=== PATIENT | female | born 1985 | race Caucasian/White ===

== ENCOUNTER 2022-03-20 12:21 | Inpatient (IN) | payer SELFPAY, OTHER ==
[2022-03-20] VITALS (16 sets, daily range): BP systolic 121–140; BP diastolic 75–89; PULSE 70–100; RESP 15–22; TEMP 36.3–36.8; O2SAT 91–98; BMI 27.8
[2022-03-20] MEDS: Lactated Ringers 1,000 ML 999 ML IV (12:30)
[2022-03-20 12:44] LABS: Absolute Lymphocyte Count 1.61 X10^3/uL (0.83-4.51); Absolute Neutrophil Count 8.8 X10^3/uL (2.0-7.7); Basophil# 0.04 X10^3/uL; Basophil% 0.4 % (0-1); Eosinophil# 0.03 X10^3/uL; Eosinophils% 0.3 % (0-5); Hematocrit 44.4 % (37-47); Hemoglobin 14.8 g/dL (12.0-15.0); Lymphocyte # 1.61 X10^3/ul (0.83-4.51); Lymphocyte % 14.6 % (19-41); Mean Corp Hgb Conc 33.3 g/dL (32-36); Mean Corpuscular Hgb 30.3 pg (27.0-32.0); Mean Corpuscular Volume 90.8 fL (81-99); Mean Platelet Vol. 9.9 fl (6.2-12.0); Monocyte# 0.57 X10^3/uL; Monocyte% 5.2 % (0-10); NRBC Flagged by Analyzer 0 % (0-5); Neutrophil # 8.76 X10^3/uL (2.7-7.7); Platelet Count 208 K/mm3 (150-450); RBC Distribution Width CV 12.7 % (11.6-14.6); RBC Distribution Width SD 42.3 fl (35.1-43.9); Red Blood Count 4.89 M/mm3 (4.2-5.4); White Blood Count 11.1 K/mm3 (4.4-11.0)
--- NOTE | 2022-03-20 12:50 | MASS_PTH ---
PATIENT: EBONY CERNA LOC: WP U#:[id number] AGE/SX: 36/F ROOM: [facility] RE03/20/[address]: Dr. 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 See comment. AM:pema 03/22/2022 COMMENT The patient?s history of recent section is noted. MICROSCOPIC DESCRIPTION Slides are reviewed. GROSS DESCRIPTION Received in fixative is one container labeled with the patient's name and designated uterine mass. The specimen consists of a pink, congested nodular mass measuring 2.5 x 2.0 x 2.0 cm. The specimen is inked, serially sectioned and reveals congested cut surfaces. The entire specimen is submitted in three cassettes. / SJ:pema 03/21/2022 TC:5 CPT: 33049
[2022-03-20 13:26] LABS: Bacteria 0 SEEN /hpf (None Seen); Mucous, Urine 0 SEEN /hpf (<or=2+); White Blood Cells 0 SEEN /hpf (0-5)
[2022-03-20 13:31] LABS: ALB/GLOB Ratio 0.8 RATIO (0.9-2.4); AST(SGOT) 12 U/L (15-37); Alanine Aminotransfer ALT/SGPT 20 U/L (13-56); Alkaline Phosphatase 71 U/L (45-117); Anion Gap 6 (5-15); BUN 13 mg/dL (7-18); BUN/Creat Ratio 18.7 RATIO (10-20); Calcium,Total 9.1 mg/dL (8.5-10.1); Chloride 107 mmol/L (98-107); EST Glomerular Filtration Rate 102 mL/min (>60); Est Glom Filt Rate - Afr Amer 124 mL/min (>60); Estimated Creatinine Clearance 114.23 ml/min; Globulin 3.8 g/dL (2.2-4.2); Glucose 95 mg/dL (74-106); Potassium 3.5 mmol/L (3.5-5.1); Protein, Total 6.8 g/dL (6.4-8.2); Sodium Level 140 mmol/L (136-145)
[2022-03-20 13:34] LABS: Color, Urine Yellow (Yellow); Glucose, Dipstick Normal (Normal); Ketone-Dipstick Negative (Negative); Leukocyte Esterase-Dipstick Negative /ul (Negative); Nitrite-Dipstick Negative (Negative); Occult Blood-Urine 25 /ul (Negative); Protein-Dipstick Negative (Negative); Urine Bilirubin Dipstick Negative (Negative); Urine Clarity Sl. Cloudy (Clear); Urine Urobilinogen Normal (Normal); Urine pH 6.5 (5.0 - 8.0)
[2022-03-20 13:34] LABS: Partial Thromboplast Time 28.9 Seconds (24.1-36.2)
[2022-03-20] MEDS: Oxytocin 15 Units/NS 250ml 15 UNITS/250 ML IV.SOLN 83 UNITS IV (13:40)
[2022-03-20 13:43] LABS: Red Blood Cells-Urine 0-5 SEEN /hpf (0-5); Squamous Epithelial Cells - UA 0-5 SEEN /hpf (5-10)
[2022-03-20 13:45] LABS: Amphetamine Urine VISTA NEGATIVE (<1000 ng/mL); Barbiturate Urine VISTA NEGATIVE (< 200 ng/mL); Benzodiazepine Urine VISTA NEGATIVE (< 200 ng/mL); Cocaine Urine VISTA NEGATIVE (< 300 ng/mL); Ecstacy Urine VISTA NEGATIVE (< 500 ng/mL); Methadone Urine VISTA NEGATIVE (< 300 ng/mL); PCP Urine VISTA NEGATIVE (< 25 ng/mL); THC Urine VISTA NEGATIVE (< 50 ng/mL); Vista UDS pH Range 6
[2022-03-20] MEDS: Cefazolin 2 GM in 0.9% Normal Saline 100 ML IV (14:13)
--- NOTE | 2022-03-20 14:26 | PCM.HP.OB ---
HPI - General General Date of Admission: 03/20/22 HPI Narrative EBONY CERNA, is a 36 y/o who presents to labor and delivery along with a wrapper layer from the community due to contractions. The spray technician states that she heard audible decelerations and brought her in. They are unsure of the gestational age. She states that she has had 3 prior vaginal deliveries. During this they believe she probably had COVID during the . She is Rh Negative and her is positive but she only gets rhogam if the baby is positive in the past. PFSH PFSH no medical history Allergy/AdvReac Type Severity Reaction Status Date / Time No Known Allergies Allergy Verified 03/20/22 12:53 no significant family history no surgical history History 4 Elective abortions Hx Para 3 Spontaneous abortions Hx # Term Pregnancies Ectopic pregnancies Hx # Pregnancies Multiple births # of living children NST FHR Rate Baby A Baseline: 130 Variability:: Absent Accelerations:: None Decelerations:: Prolonged NST Reactive:: Non-Reactive FHR Category:: Category III Uterine Activity:: q 2 minutes ROS Constitutional Constitutional: Denies change in weight, fatigue, fever(s), headache(s), poor appetite or weakness Eyes Eyes: Denies blurry vision, change in vision, seeing flashes or spots in vision ENT HEENT: Denies dizziness, headache(s), loss taste/smell or sore throat Cardiovascular Cardiovascular: Denies chest pain, dizziness, dyspnea, irregular heart rhythm, leg edema, palpitations, rapid heart rate or vomiting Respiratory/Chest Respiratory/Chest: Denies chest tightness, cough, dyspnea or breast pain Gastrointestinal Gastrointestinal: Denies abdominal pain, anorexia, constipation, cramping, diarrhea, hemorrhoids, vomiting or weight changes Genitourinary Genitourinary: Denies dysuria, flank pain, genital lesions, genital pain, urinary frequency or urinary urgency Musculoskeletal Musculoskeletal: Denies back pain, difficulty walking, joint pain, limited range of motion, muscle cramps or numbness Integumentary Integumentary: Denies lesions or unusual bruising Neurologic Neurologic: Denies abnormal movements, abnormal speech, dizziness, numbness, seizure-like activity or syncope Psychiatric Psychiatric: Denies anxiety, behavioral changes, change in appetite, change in libido, cognitive impairment, confusion, depression, difficulty concentrating, hallucinations or suicidal thoughts Endocrine Endocrinology: Denies excessive sweating, polydipsia or polyuria Hematologic/Lymphatic Hematologic/Lymphatic: Denies easy bleeding, easy bruising or lymphadenopathy Allergic/Immunologic Allergic/Immunologic: Denies itchy eyes, lip swelling, seasonal rhinorrhea, rhinitis, throat swelling, tongue swelling, eczemia, wheezing or asthma Vital Signs Vital Signs Vital Signs: 03/20/22 12:17 03/20/22 12:19 03/20/22 12:19 Temperature 97.7 F L Pulse Rate 100 Blood Pressure 132/85 H BP Systolic 132 BP Diastolic 85 Pulse Ox 03/20/22 12:19 03/20/22 12:19 Temperature Pulse Rate 88 Blood Pressure BP Systolic BP Diastolic Pulse Ox 91 Weight Weight: 182 lb 15.739 oz Body Mass Index (BMI) 27.8 Physical Exam Const alert, oriented x3, no apparent distress and healthy appearing General Appearance: cooperative; Negative for anxious HEENT normocephalic Face and Sinus: normal facial exam Eyes EOMs intact bilaterally and no scleral icterus General Eye: normal appearance of both eyes Neck full ROM and supple Lymph Lymphatic: no lymphadenopathy noted Chest Chest: abnormal inspection of the chest Resp normal respiratory effort Effort and Inspection: able to speak in complete sentences Cardio regular rate GI soft to palpation and non-tender Inspection: gravid Palpation: soft; Negative for tender external exam normal Narrative: bedside ultrasound shows head circumference measuring 29 weeks 3 days, abdominal circumference measuring 29 weeks 3 days, and Femur length 30 weeks 0 days Speculum Exam - Cervix: other cx is 1/50/-3 Back/Spine no CVA tenderness Extremity normal to inspection, full ROM and no clubbing, cyanosis or edema General Extremity: Negative for calf tenderness or edema Skin Lesions: no lesions Rashes: no rashes Psych mental status grossly normal Labs Labs Labs: Blood Type A NEGATIVE Antibody Screen NEGATIVE Hct 44.4 % (37-47) Hgb 14.8 g/dL (12.0-15.0) Syphilis Total Ab Pending Rubella IgG Antibody Pending Hep Bs Antigen Pending HIV 1&2 Antibody Pending Group B Strep DNA Pending Assessment & Plan (1) distress: (2) No care in current : PLAN: pt thinks she is between 33 and 37 weeks gestation PLAN: Plan initially magnesium sulfate and celestone ordered, however due to category 3 FHT the plan is for emergency section now for distress. DONITA called [facility]'s transport team called
[2022-03-20] MEDS: Ketorolac 30 MG/ML Syringe IV ×2 (14:39→20:22)
[2022-03-20] MEDS: Acetaminophen 500 MG Tablet 1000 MG PO ×2 (14:39→20:21)
--- NOTE | 2022-03-20 14:43 | EX.PCM.OBRPT ---
Assessment & Plan (1) No care in current : (2) distress: Maternal Data Information Gestational age: unknown Details Operative Information Date of Procedure: 03/20/22 Pre-Operative Diagnosis: , unknown gestational age, suspect 30 weeks, distress, no care Post-Operative Diagnosis: , unknown gestational age, suspect 30 weeks, distress, no care Classification: Stat Procedure Type: low transverse Type of Anesthesia: General Anesthesiologist: Elly Bah Antibiotic Given: Ancef 2 grams IV x1 Drain: French to straight drain Estimated Blood Loss: 600cc Findings Description of Procedure: The patient was brought to the OR for a STAT section due to distress. A French catheter was placed. The patient was placed in the dorsal supine position . Patient was prepped and draped in the normal sterile fashion. General anesthesia was performed and Pfannenstiel skin incision was made with the scalpel and carried through to the underlying layer of fascia with the scalpel. Fascia was nicked in the midline and the incision extended laterally. The rectus bellies were dissected off superiorly and inferiorly with out complication both sharply and bluntly. The peritoneum was entered digitally. The incision was stretched and a low transverse uterine incision was made with the scalpel. Thick meconium stained fluid was noted. The 's head was delivered atraumatically followed by the anterior and posterior shoulders without complication the rest of the infant delivered. The cord was clamped and cut and the infant was handed off to awaiting nurse. The baby was very small and not crying or breathing. The placenta was delivered spontaneously immediately following and was noted to be intact and have a three-vessel cord. Cord gases were attempted to be collected, however the placenta was very calcified and vessels were drained of all blood. The uterus was exteriorized cleared of all clots and debris, and the incision was closed in a double layer closure using # 1 Vicryl and #1Monocryl. The ovaries and fallopian tubes were noted to be within normal limits. There was noted to be an unknown mass like structure within the uterus that was sitting freely in the uterus. This was passed off for pathology analysis. The uterus was returned to the maternal abdomen and gutters were cleared of all clots and debris. The peritoneum was closed with 3-0 Monocryl in a running fashion. Gloves were changed prior to fascial closure. Fascia was closed with 0 PDS in a running fashion. Subcutaneous tissue was copiously irrigated and the skin was closed with 3-0 Monocryl in a subcuticular fashion. Mepilex dressing was applied without complication. Patient was taken to recovery in stable condition. scores were not calculated as the infant was being intubated and cared for by the lining feller blindstitch. Presentation: Positive for Vertex Amniotic Membrane Rupture Type: Artificial Amniotic Fluid Description: Thick meconium Placental Delivery Description: Expressed Placenta Disposition: [facility] Specimen(s) Sent to Pathology: pathology Cord Vessel Description: 3 Vessels Cord Entanglement: None Infant A Gender: Male Delayed Cord Clamping: No Complications Risks of Surgery Discussed w/Patient: Bleeding, Anesthesia Risks, Infection, Need for Future C-Sections and Injury to surrounding structure(s) including bowel and bladder Multi Select Codes Urinary/Genital Urinary/Genital CPT Codes: 88573 Delivery [facility]
[2022-03-20 14:49] LABS: Rubella IgG Reactive (Nonreactive); Syphilis Antibodies Non-reactive
[2022-03-20 14:49] LABS: Pathology Specimen OB SEE PATHOLOGY REPORT
[2022-03-20 15:01] LABS: Chlamydia Trachomatis by PCR Negative (Negative); Neisserai gonorrhoeae by PCR Negative (Negative); Probe Check PASS; Sample Adequacy Control PASS; Specimen Processing Control PASS
[2022-03-20 15:11] LABS: HIV - WCH Non-Reactive (Nonreactive); Hepatitis B Surface Antigen Non-Reactive (Nonreactive); Hepatitis C Antibody Non-Reactive (Nonreactive)
[2022-03-20 16:10] LABS: Bedside Glucose 117 mg/dL (74-106)
[2022-03-20] MEDS: Lactated Ringers 1,000 ML 100 ML IV (16:49)
[2022-03-20] MEDS: oxyCODONE 5 MG Tablet PO ×2 (17:09→22:29)
[2022-03-21 02:10] VITALS: BP 121/73; PULSE 76; RESP 16; TEMP 36.7; O2SAT 96
[2022-03-21] MEDS: Acetaminophen 500 MG Tablet 1000 MG PO ×4 (02:11→20:32)
[2022-03-21] MEDS: Ketorolac 30 MG/ML Syringe IV ×2 (02:11→08:42)
[2022-03-21 05:22] VITALS: BP 126/79; PULSE 77; RESP 16; TEMP 36.7; O2SAT 97
[2022-03-21 05:43] LABS: Hematocrit 37.1 % (37-47); Hemoglobin 12.5 g/dL (12.0-15.0); Mean Corp Hgb Conc 33.7 g/dL (32-36); Mean Corpuscular Hgb 30.4 pg (27.0-32.0); Mean Corpuscular Volume 90.3 fL (81-99); Mean Platelet Vol. 9.8 fl (6.2-12.0); Platelet Count 185 K/mm3 (150-450); RBC Distribution Width CV 12.8 % (11.6-14.6); RBC Distribution Width SD 42.3 fl (35.1-43.9); Red Blood Count 4.11 M/mm3 (4.2-5.4); White Blood Count 14.1 K/mm3 (4.4-11.0)
[2022-03-21 05:55] LABS: Bedside Glucose 93 mg/dL (74-106)
[2022-03-21 08:40] VITALS: BP 118/72; PULSE 87; RESP 16; TEMP 36.3
[2022-03-21] MEDS: Senna/Docusate Sodium 1 Tablet PO (08:42)
[2022-03-21] MEDS: 0.9% Saline Lock 10 ML Syringe IV (08:43)
--- NOTE | 2022-03-21 09:04 | PN.OBGYN_ITS ---
Subjective Subjective Patient doing well without complaints. Tolerating PO. Ambulating and voiding without difficulty. Feeding well. Denies chest pain, shortness of breath, calf pain/swelling, fevers, chills, lightheadedness. Objective Data Objective Data Vital Signs: Vital Signs Temp Pulse Resp BP Pulse Ox O2 Del Method 98.0 F 77 16 126/79 H 97 Room Air 03/21/22 05:22 03/21/22 05:22 03/21/22 05:22 03/21/22 05:22 03/21/22 05:22 03/21/22 05:22 Oxygen Delivery Method Room Air Weight: 182 lb 15.739 oz Body Mass Index (BMI) 27.8 Intake & Output: Intake and Output for Last 24 Hours 03/19/22 03/20/22 03/21/22 23:59 23:59 23:59 Intake Total 786.35 / 786.35 958.33 / 958.33 Output Total 1900 / 1900 1100 / 1100 Balance -1113.65 / -1113.65 -141.67 / -141.67 Lab / Micro Data Attestation: I reviewed the patient's lab results. Result Diagrams: 03/21/22 05:30 03/20/22 12:30 Labs: Laboratory Results - last 24 hr 03/20/22 12:20: Urine Color Yellow, Urine Clarity Sl. Cloudy, Urine pH 6.5, Ur Specific [place] 1.010, Urine Protein Negative, Urine Glucose (UA) Normal, Urine Ketones Negative, Urine Occult Blood 25 H, Urine Nitrite Negative, Urine Bilirubin Negative, Urine Urobilinogen Normal, Ur Leukocyte Esterase Negative, Urine RBC 0-5 SEEN, Urine WBC 0 SEEN, Ur Squamous Epith Cells 0-5 SEEN, Urine Bacteria 0 SEEN, Urine Mucus 0 SEEN 03/20/22 12:20: Urine Opiates Screen NEGATIVE, Urine Methadone Screen NEGATIVE, Ur Barbiturates Screen NEGATIVE, Ur Phencyclidine Scrn NEGATIVE, Ur Amphetamines Screen NEGATIVE, MDMA (Ecstasy) Screen NEGATIVE, U Benzodiazepines Scrn NEGATIVE, Urine Cocaine Screen NEGATIVE, U Cannabinoids Screen NEGATIVE, Ur Drug Screen Comment 03/20/22 12:20: Chlam trachomat DNA PCR Negative, N.gonorrhoeae DNA (PCR) Nega tive, Group B Strep DNA Cancelled, Specimen Comment Cancelled 03/20/22 12:30: Blood Type A NEGATIVE, Antibody Screen NEGATIVE 03/20/22 12:30: Syphilis Total Ab Non-reactive, Rubella IgG Antibody Reactive 03/20/22 12:30: Hep Bs Antigen Non-Reactive, Hepatitis C Antibody Non-Reactive, HIV 1&2 Antibody Non-Reactive 03/20/22 12:30: Sodium 140, Potassium 3.5, Chloride 107, Carbon Dioxide 27.0, Anion Gap 6, BUN 13, Creatinine 0.70, Estim Creat Clear Calc 114.23, Est GFR (MDRD) Af Amer 124, Est GFR (MDRD) Non-Af 102, BUN/Creatinine Ratio 18.7, Glucose 95, Calcium 9.1, Total Bilirubin 0.50, AST 12 L, ALT 20, Alkaline Phosphatase 71, Total Protein 6.8, Albumin 3.0 L, Globulin 3.8, Albumin/Globulin Ratio 0.8 L 03/20/22 12:30: PT 13.0, INR 1.0, APTT 28.9 03/20/22 15:46: POC Glucose 117 H 03/20/22 15:55: Screen NEGATIVE, Baby's Blood Type TNP, Baby's JAMES TNP 03/20/22 : WBC 11.1 H, RBC 4.89, Hgb 14.8, Hct 44.4, MCV 90.8, MCH 30.3, MCHC 33.3, RDW Std Deviation 42.3, RDW Coeff of Bess 12.7, Plt Count 208, MPV 9.9, Immature Gran % (Auto) 0.500, Neut % (Auto) 79.0 H, Lymph % (Auto) 14.6 L, Meeker % (Auto) 5.2, Eos % (Auto) 0.3, Baso % (Auto) 0.4, Absolute Neuts (auto) 8.8 H, Absolute Lymphs (auto) 1.61, Nucleated RBC % 0 03/21/22 05:20: POC Glucose 93 03/21/22 05:30: WBC 14.1 H, RBC 4.11 L, Hgb 12.5, Hct 37.1, MCV 90.3, MCH 30.4, MCHC 33.7, RDW Std Deviation 42.3, RDW Coeff of Bess 12.8, Plt Count 185, MPV 9.8 Physical Exam Const alert, oriented x3 and no apparent distress Eyes PERRL Neck full ROM Lymph Lymphatic: no lymphadenopathy noted Chest inspection of chest normal Resp normal respiratory effort, normal air movement and no retractions Cardio regular rate and regular rhythm GI GI Narrative: fundus firm at u/mild lochia. no clots Narrative: voiding spontaneous, clear yellow Extremity normal to inspection and full ROM Skin Skin Narrative: dressing c/d/i. no erythema, edema Neuro oriented x3 Psych mental status grossly normal Assessment & Plan (1) delivery delivered: COMMENT: c/s due to distress josseline michel pt.03/20/2022 JV PLAN: s/p LTCS PPD # 1 1. routine post care 2. breast feeding- support given 3. rh positive 4. rubella immune 5. desires early d/c to go to [facility]. stable pp. 6. enc pain management
--- NOTE | 2022-03-21 09:10 | DCINST_ITS ---
Discharge Instructions Diet Discharge Diet: No restrictions Activity Discharge Activity: May Not Drive May resume sexual activity in: 6-8 weeks Weight Bearing Status: Weight bearing as tolerated Dressing / Incision Call your doctor if your incision/area has: Continuous Slow Oozing, Sudden Increased Bleeding, Increased Pain/ Swelling, Increased Redness, Foul Smelling Discharge and Swelling at the incision site Call your doctor if you observe: Fever of 101 or Higher, Numbness or Tingling, Change in Color, Inability to urinate, Inability to have a bowel movement, Using more than 1 pad per hour, Shortness of breath, Fainting spells, Chest pain, Increased palpitations (irregular heartbeat), Calf discomfort and Uncontrolled pain Remove Dressing in: 1 week Cleanse incision/area with: Soap & Water Follow Up Care Please Follow Up With: Suki Rodriguez DO When: 2 weeks and 6 weeks Test Results: Test results from this visit will be discussed in further detail at your follow- up appointment, if applicable. Discharge Plan Admission Admit Date/Time: 03/20/22 12:21 Attending Provider: Suki Rodriguez Primary Care Provider: Care Physician,Teresa Primary Discharge Orders/Prescriptions Prescriptions: No Action 1 mg Tablet 1 tab PO DAILY Referrals / Follow Up: Care Physician,Teresa Primary [Primary Care Provider] - Disposition Disposition (needs filled in before D/C Order can be placed): Home, Self Care
[2022-03-21 14:00] VITALS: BP 126/74; PULSE 84; RESP 16; TEMP 36.1
[2022-03-21] MEDS: Ibuprofen 600 MG Tablet PO ×2 (14:31→20:32)
--- NOTE | 2022-03-21 15:09 | NURSING ---
IBCLC round during shift. Mother reports she has been pumping. Denies questions or concerns. Feels pumping is working well. Reports she is pumping about every 4 hours. Discussed importance of pumping 8-12x in 24 hours which would be better to do every 2-3 hours during the day and night. Indicates understanding and is getting ready to pump now.
[2022-03-21 20:30] VITALS: BP 123/78; PULSE 85; RESP 17; TEMP 36.3
[2022-03-22 02:30] VITALS: BP 115/72; PULSE 75; RESP 16; TEMP 36.4
[2022-03-22] MEDS: Ibuprofen 600 MG Tablet PO ×2 (02:31→08:41)
[2022-03-22] MEDS: Acetaminophen 500 MG Tablet 1000 MG PO ×2 (02:31→08:40)
--- NOTE | 2022-03-22 07:58 | PCM.DC.SUM ---
Providers Date of Admission: 03/20/22 Primary Care Physician: No Primary Care Phys Reason For Visit: PRIMARY C SECTION Diagnosis Discharge Diagnosis (1) delivery delivered: Status: Acute Code(s): O82 - Encounter for delivery without indication Plan initially magnesium sulfate and celestone ordered, however due to category 3 FHT the plan is for emergency section now for distress. DONITA called [facility] transport team called Medications at Discharge Home Medications [id number] 1 mg tablet 1 tab PO DAILY Check with primary doctor 03/20/22 naproxen 500 mg tablet 500 mg PO BID PRN pain #30 tabs 03/22/22 oxycodone-acetaminophen 5 mg-325 mg tablet (Percocet) 1 tab PO Q4H PRN pain 7 days #30 tabs 03/22/22 Hospital Course Operations section Summary of Care Provided Minutes Spent on Discharge: 30 Hospital Course: The patient was admitted for a repeat section on 01/17/23 for distress. The baby was transported to [facility]. Tamra recovered well on POD #0, 1, and 2 without complications. We received news that the baby was not doing well and since the patient was stable, the decision was made to discharge to be with her child in [place]. Physical Exam HEENT normocephalic Resp normal respiratory effort and normal air movement GI soft to palpation, non-tender and non-distended Rectal Exam: other Other Details: Incision is clean, dry, and intact no CVA tenderness Extremity normal to inspection General Extremity: edema bilateral (trace ) Weight / BMI Weight Weight: 182 lb 15.739 oz Body Mass Index (BMI) 27.8 ABG / Lab / Microbiology Data Result Diagrams: 03/21/22 05:30 03/20/22 12:30 D/C Instructions Discharge Diet: No restrictions May resume sexual activity in: 6-8 weeks Weight Bearing Status: Weight bearing as tolerated Call your doctor if your incision/area has: Continuous Slow Oozing, Sudden Increased Bleeding, Increased Pain/ Swelling, Increased Redness, Foul Smelling Discharge and Swelling at the incision site Call your doctor if you observe: Fever of 101 or Higher, Numbness or Tingling, Change in Color, Inability to urinate, Inability to have a bowel movement, Using more than 1 pad per hour, Shortness of breath, Fainting spells, Chest pain, Increased palpitations (irregular heartbeat), Calf discomfort and Uncontrolled pain Suture Line Care: Avoid Pulling/Pushing and Avoid Pinching/Bending Cleanse incision/area with: Soap & Water Please Follow Up With: Suki Rodriguez DO When: 2 weeks and 6 weeks Meaningful Use Info Meaningful Use Diagnoses (Choose all that apply): None applicable Discharge Plan Admission Admit Date/Time: 03/20/22 12:21 Primary Reason for Your Visit: section Attending Provider: Suki Rodriguez Primary Care Provider: Teresa Mccullough Primary Discharge Orders/Prescriptions Prescriptions: New oxycodone-acetaminophen [Percocet] 5-325 mg tablet 1 tab PO Q4H PRN (Reason: pain) 7 Days Qty: 30 0RF Rx Instructions: 1-2 tabs q 4 hrs as needed for pain naproxen 500 mg tablet 500 mg PO BID PRN (Reason: pain) Qty: 30 0RF Continued [id number] 1 mg Tablet 1 tab PO DAILY Referrals / Follow Up: Care Physician,Teresa Primary [Primary Care Provider] - Disposition Disposition (needs filled in before D/C Order can be placed): Home, Self Care
[2022-03-22 08:30] VITALS: BP 127/84; PULSE 111; RESP 16; TEMP 36.3
[2022-03-22] MEDS: Senna/Docusate Sodium 1 Tablet PO (08:40)
[2022-03-22 13:00] VITALS: BP 138/97; PULSE 75; RESP 18; TEMP 36.3
--- NOTE | 2022-03-22 17:03 | CASEMGMT ---
Social Work Brief Assessment Labor and Delivery Unit Patient Address: [address] [place] [address] [address] [place], [place] 05/10/1958 Phone number: [phone] Date of Referral/Notification: 03/22/2022 Time of Referral: [phone] Referred By: Dr. Rivera Date of Intervention: 03/22/2022 Time of Intervention: Approximately 1230 Reason for Referral: transferred to [facility]; possible resources Informant: Medical record and mother of baby (MOB) Tamra Block; father of baby (FOB) Irena Block and MOB's mother present during conversation. History: DAMI is a 36-year-old female, to the FOGeovani Osborn. Parents are from the [facility]. DAMI is 4, para 3 now 4 after delivering baby girl Salma. Gestational age is estimated between 33 and 37 weeks. DAMI was followed by the inserting machine operator Kerry Alexandre in the [facility]. Salma's weight 3 pounds 5 ounces. Apgars 3-4-8 at 1-5-10 minutes of life respectively. Infant was transferred to [facility] for issues related to prematurity, hypoxia and hypoglycemia. Medical record indicates the placenta was calcified and vessels drained of blood at time of delivery. DAMI reports other children at home are ages 5, 3, and 1, all of whom were delivered at home and delivered by Kerry. DAMI denies any type of history of mood and anxiety disorders. Reports drank a tea called happy mama for about 6 weeks with each of her 3 prior children. No reports of any substance use. Upon admission MOB denied any type of safety issues or domestic violence. Assessment: Met with MOB in room, introducing to self and social work role. FOB and MOB's mother were both present. MOB agreeable to speak with this law writer. MOB acknowledges that this delivery experience was not as expected, with having 3 prior home births. MOB reports she is doing okay physically just a little bit sore. Reports to be looking forward to going up to [place] and seeing Salma and finding out more about what is going on. MOB reports to have good support from family who live close by. MOB and FOB's siblings are healthy to take care of the other children while the parents are at the hospital. Explored any history of the baby blues or for MOB. MOB reports has done well with mood after each , though did take the tea called happy jewela. Educated to mood and anxiety disorders, risk for in relation to delivery experience not as expected and not having a baby in the NICU. Encouraged self-care as well as speaking up if feeling in emotional distress. Educated there will be social work available at [facility] as well as an [facility] liaison should the family be needed. MOB held good eye contact, appropriate affect, and engaging in conversation. MOB spontaneously expressed thanks to this law writer for checking in and providing encouragement and support this date. Parents do have a hired mechanic driver to transport up to [facility]. Note, while this law writer in the room the FOB took a phone call from [facility] and received an update on the baby were health reports that the baby has been able to urinate as well as is off oxygen. MOB and FOB expressed hope. Emotional support offered. Plan: MOB discharging today with support from FOB and MOB's father. MOB denies any concerns at this time. Social work will be available at [facility] should family need additional support or resources prior to the baby being ready to go home. No further needs requested or indicated. -CUBA Wong, MUKUL *This note was generated with Burtation software. It may contain incorrect words, spelling, and punctuation that were not noted in review of the chart prior to signing*
== END 2022-03-22 13:20 | disposition home or self-care (01) | DRG 788 ==
LOC: WPOUT 12:22 → WP 12:22
PROVIDERS: Admitting Provider Obstetrics & Gynecology; Referring Provider Obstetrics & Gynecology; Visit Provider Obstetrics & Gynecology
DX: O76 Abnormality in fetal heart rate and rhythm complicating labor and delivery (principal); O77.0 Labor and delivery complicated by meconium in amniotic fluid; Z37.0 Single live birth; Z3A.00 Weeks of gestation of pregnancy not specified
CPT/HCPCS: 59025; 76815; 80053; 80307; 81001; 82962; 85025; 85027; 85461; 85610; 85730; 86703; 86762; 86780; 86803; 86850; 86900; 86901; 87340; 87491; 87591; 88305; 99221; J7120; A4216; G0378; J0702; J2405; J2790

== ENCOUNTER → 2022-05-06 | Outpatient (CLI) | payer OTHER, SELFPAY ==
[2022-05-13 20:53] LABS: HPV APTIMA, High Risk Negative (Negative)
== END | disposition home or self-care (01) ==
LOC: LABSPEC 15:22
PROVIDERS: Referring Provider Advanced Practice Midwife; Visit Provider Advanced Practice Midwife
DX: Z01.419 Encounter for gynecological examination (general) (routine) without abnormal findings (principal)
CPT/HCPCS: 87624; 88175; G0145